=== PATIENT | female | born 1995 | race Caucasian/White ===

== ENCOUNTER 2017-11-22 20:09 | Emergency (ER) | payer OTHER ==
[~2017-11-22] VITALS: Ht 165.1 cm; Wt 64.0 kg
[2017-11-22] MEDS ORDERED: IV RINGERS SOLUTION,LACTATED 1,000 ML IV SCH (20:40)
--- NOTE | 2017-11-22 20:40 | ED.ADGEN ---
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 here in my lower abd.. kali to right.. it better now.. but I got scared since I am about 10 weeks ....." HPI HPI Patient is a 22 year old female who presents with above hx and complaints of lower Rt. quadrant abdomen pain. Pt. . Estimated 10 wks gravid. Pt. denies any bleeding or vaginal discharge. Pt. has been nauseated. No hx of ill contacts or travel. No hx of immunosuppression. Lifetime sexual partner x1 , No hx of STD. Pt[facility] following [facility]. No hx of bad food intact. Normal stools. Review of Systems Review of Systems Constitutional: Denies fever or chills [] Eyes: Denies change in visual acuity, redness, or eye pain [] HENT: Denies nasal congestion or sore throat [] Respiratory: Denies cough or shortness of breath [] Cardiovascular: No additional information not addressed in HPI [] GI: Complaints of abdominal pain, nausea,. Denies vomiting, bloody stools or diarrhea [] : Denies dysuria or hematuria [] Musculoskeletal: Denies back pain or joint pain [] Integument: Denies rash or skin lesions [] Neurologic: Denies headache, focal weakness or sensory changes [] Endocrine: Denies polyuria or polydipsia [] All other systems were reviewed and found to be within normal limits, except as documented in this note. Family History Family History Non-contributory Current Medications Current Medications Current Medications Medications (Trade) Dose Ordered Sig/Zayda Start Time Stop Time Status Last Admin Dose Admin Cephalexin HCl (Keflex) 500 mg 1X ONCE 11/22/17 22:15 11/22/17 22:16 DC 11/22/17 22:04 500 MG Lactated Ringer's 1,000 ml @ 1,000 mls/hr Q1H 11/22/17 20:40 11/22/17 21:39 DC 11/22/17 22:05 1,000 MLS/HR Potassium Chloride (KCl Oral Soln) 40 meq 1X ONCE 11/22/17 22:00 11/22/17 22:01 DC 11/22/17 22:05 40 MEQ Allergies Allergies Allergies Coded Allergies Type Severity Reaction Last Updated Verified No Known Drug Allergies 11/22/17 No Physical Exam Physical Exam Constitutional: Well developed, well nourished, no acute distress, non-toxic appearance. [] HENT: Normocephalic, atraumatic, bilateral external ears normal, oropharynx moist, no oral exudates, nose normal. [] Eyes: PERRLA, EOMI, conjunctiva normal, no discharge. [] Neck: Normal range of motion, no tenderness, supple, no stridor. [] Cardiovascular:Heart rate regular rhythm, no murmur [] Lungs & Thorax: Bilateral breath sounds clear to auscultation [] Abdomen: Bowel sounds normal, soft, mild generalize lower abd. tenderness, no masses, no pulsatile masses. [] Gravid. Skin: Warm, dry, no erythema, no rash. [] Back: No tenderness, no CVA tenderness. [] Extremities: No tenderness, no cyanosis, no clubbing, ROM intact, no edema. [] No psoas. Neurologic: Alert and oriented X 3, normal motor function, normal sensory function, no focal deficits noted. []DTR+ 2 patella. Psychologic: Affect anxious, judgement normal, mood normal. [] Current Patient Data Vital Signs Vital Signs Date Time Temp Pulse Resp B/P (MAP) Pulse Ox O2 Delivery O2 Flow Rate FiO2 11/22/17 22:55 75 18 116/69 (85) 100 Room Air 11/22/17 20:09 98.2 Lab Results Laboratory Tests Test 11/22/17 20:26 11/22/17 20:34 11/22/17 21:15 POC Urine HCG, Qualitative hcg positive (Negative) White Blood Count 6.8 x10^3/uL (4.0-11.0) Red Blood Count 4.21 x10^6/uL (3.50-5.40) Hemoglobin 11.1 g/dL (12.0-15.5) L Hematocrit 33.3 % (36.0-47.0) L Mean Corpuscular Volume 79 fL (79-100) Mean Corpuscular Hemoglobin 26 pg (25-35) Mean Corpuscular Hemoglobin Concent 33 g/dL (31-37) Red Cell Distribution Width 17.6 % (11.5-14.5) H Platelet Count 257 x10^3/uL (140-400) Neutrophils (%) (Auto) 63 % (31-73) Lymphocytes (%) (Auto) 30 % (24-48) Monocytes (%) (Auto) 7 % (0-9) Eosinophils (%) (Auto) 1 % (0-3) Basophils (%) (Auto) 0 % (0-3) Neutrophils # (Auto) 4.2 x10^3uL (1.8-7.7) Lymphocytes # (Auto) 2.0 x10^3/uL (1.0-4.8) Monocytes # (Auto) 0.5 x10^3/uL (0.0-1.1) Eosinophils # (Auto) 0.1 x10^3/uL (0.0-0.7) Basophils # (Auto) 0.0 x10^3/uL (0.0-0.2) Prothrombin Time 9.5 SEC (9.4-11.4) Prothrombin Time INR 0.9 (0.9-1.1) PTT 24 SEC (23-33) Maternal Serum HCG Beta Subunit 011564 mIU/mL (0-6) H Sodium Level 139 mmol/L (136-145) Potassium Level 2.9 mmol/L (3.5-5.1) *L Chloride Level 102 mmol/L (98-107) Carbon Dioxide Level 26 mmol/L (21-32) Anion Gap 11 (6-14) Blood Urea Nitrogen 12 mg/dL (7-20) Creatinine 0.6 mg/dL (0.6-1.0) Estimated GFR (Cockcroft-Gault) 123.9 Glucose Level 94 mg/dL (70-99) Calcium Level 9.7 mg/dL (8.5-10.1) Total Bilirubin 0.2 mg/dL (0.2-1.0) Direct Bilirubin < 0.1 mg/dL (0.0-0.2) Aspartate Amino Transferase (AST) 16 U/L (15-37) Alanine Aminotransferase (ALT) 19 U/L (14-59) Alkaline Phosphatase 63 U/L (46-116) Total Protein 7.7 g/dL (6.4-8.2) Albumin 3.9 g/dL (3.4-5.0) Urine Collection Type Unknown Urine Color Yellow Urine Clarity Clear Urine pH 5.0 Urine Specific [place] >=1.030 Urine Protein 30 mg/dl (NEG-TRACE) Urine Glucose (UA) Neg mg/dL (NEG) Urine Ketones (Stick) Neg mg/dL (NEG) Urine Blood Neg (NEG) Urine Nitrite Neg (NEG) Urine Bilirubin Neg (NEG) Urine Urobilinogen Dipstick 0.2 mg/dL (0.2 mg/dL) Urine Leukocyte Esterase Small (NEG) Urine RBC 0 /HPF (0-2) Urine WBC 1-4 /HPF (0-4) Urine Squamous Epithelial Cells Mod /LPF Urine Bacteria Mod /HPF (0-FEW) Urine Mucus Slight /LPF Urine Opiates Screen Neg (NEG) Urine Methadone Screen Neg (NEG) Urine Barbiturates Neg (NEG) Urine Phencyclidine Screen Neg (NEG) Urine Amphetamine/Methamphetamine Neg (NEG) Urine Benzodiazepines Screen Neg (NEG) Urine Cocaine Screen Neg (NEG) Urine Cannabinoids Screen Neg (NEG) Urine Ethyl Alcohol Neg (NEG) EKG EKG [] Radiology/Procedures Radiology/Procedures US= Small bleed- 3 x3.7 cm x 0.5 . Live IUP est. 11wks, EDC =06-13-18, FHR 178 , [] Course & Med Decision Making Course & Med Decision Making Pertinent Labs and Imaging studies reviewed. (See chart for details) Followup all labs and cultures with primary and OB. Push fruit juices. Take Keflex 500 three times a day x 7 days. Return if any concerns. [] Final Impression Final Impression 1. Abd. Pain in [] 2. Hypokalemia 3. Anemia 4. B-HCG= 145,425 5. UTI 6. Hypokalemia 7. IUP 11w.0 day- EDC 06-13-18 Kristi Disclaimer Dragon Disclaimer This electronic medical record was generated, in whole or in part, using a voice recognition dictation system. JUDI DUNBAR MD November 22, 2017 20:40
[2017-11-22 20:54] LABS: BASO % 0 % (0-3); EOS # 0.1 x10^3/uL (0.0-0.7); EOS % 1 % (0-3); HEMATOCRIT 33.3 % (36.0-47.0); HEMOGLOBIN 11.1 g/dL (12.0-15.5); LYMPH % 30 % (24-48); MEAN CORPUSCULAR HEMOGLOBIN 26 pg (25-35); MEAN CORPUSCULAR HGB CONC 33 g/dL (31-37); MEAN CORPUSCULAR VOLUME 79 fL (79-100); MONO # 0.5 x10^3/uL (0.0-1.1); MONO % 7 % (0-9); NEUT # 4.2 x10^3uL (1.8-7.7); NEUT % 63 % (31-73); PLATELET COUNT 257 x10^3/uL (140-400); RED BLOOD COUNT 4.21 x10^6/uL (3.50-5.40); RED CELL DISTRIBUTION WIDTH 17.6 % (11.5-14.5); WHITE BLOOD COUNT 6.8 x10^3/uL (4.0-11.0)
[2017-11-22 21:04] LABS: ALBUMIN 3.9 g/dL (3.4-5.0); ALK PHOS 63 U/L (46-116); ALT (SGPT) 19 U/L (14-59); ANION GAP 11 (6-14); AST (SGOT) 16 U/L (15-37); BLOOD UREA NITROGEN 12 mg/dL (7-20); CALCIUM 9.7 mg/dL (8.5-10.1); CARBON DIOXIDE 26 mmol/L (21-32); CHLORIDE 102 mmol/L (98-107); CREATININE 0.6 mg/dL (0.6-1.0); GFR 123.9; GLUCOSE 94 mg/dL (70-99); SODIUM 139 mmol/L (136-145); TOTAL BILIRUBIN 0.2 mg/dL (0.2-1.0); TOTAL PROTEIN 7.7 g/dL (6.4-8.2)
[2017-11-22 21:15] LABS: DIRECT BILIRUBIN < 0.1 mg/dL (0.0-0.2)
[2017-11-22 21:16] LABS: POTASSIUM 2.9 mmol/L (3.5-5.1)
[2017-11-22 21:54] LABS: BILIRUBIN,URINE NEG (NEG); CLARITY,URINE CLEAR; COLOR,URINE YELLOW; GLUCOSE,URINE NEG (NEG); NITRITE,URINE NEG (NEG); UROBILINOGEN,URINE 0.2 mg/dL (0.2 mg/dL)
[2017-11-22 21:55] LABS: BACTERIA,URINE MOD /HPF (0-FEW); RBC,URINE 0 /HPF (0-2); SQUAMOUS EPITHELIAL CELL,UR MOD /LPF
[2017-11-22 21:58] LABS: BARBITURATES NEG (NEG); BENZODIAZEPINES NEG (NEG); CANNABINOIDS NEG (NEG); COCAINE NEG (NEG); METHADONE NEG (NEG); OPIATES NEG (NEG); PHENCYCLIDINE NEG (NEG)
[2017-11-22] MEDS ORDERED: POTASSIUM CHLORIDE 20 MEQ/15 ML ORAL LIQUID. PO ONE (22:00)
[2017-11-22 22:10] LABS: AMPHETAMINE/METHAMPHETAMINE NEG (NEG)
[2017-11-22] MEDS ORDERED: CEPHALEXIN 250 MG CAPSULE PO ONE (22:15)
[2017-11-22] MEDS ORDERED: CEPH-264 PO (22:17)
--- NOTE | 2017-11-22 22:22 | RAD ---
EXAM: Obstetrics sonogram. HISTORY: Right-sided pain. TECHNIQUE: Sonographic imaging of a gravid uterus was performed. COMPARISON: None. FINDINGS: The uterus measures 11.6 x 8.2 x 9.3 cm. There is a single intrauterine gestational sac with pole and yolk sac. The gestational sac is normal in configuration. The yolk sac is slightly enlarged, measuring 6 mm. There is a subchorionic hematoma along the inferior aspect of the gestational sac measuring 3.7 x 3.0 x 0.5 cm. The crown-rump length is 4.11 cm, corresponding with a gestational age of 11 weeks and 0 days. The heart rate is 178 bpm. The cervix is closed and measures 4.0 cm. The maternal ovaries are unremarkable. There is no pelvic free fluid. IMPRESSION: 1. Single intrauterine fetus with an estimated gestational age of 11 weeks and 0 days and heart rate of 178 bpm. 2. Slightly enlarged yolk sac, measuring 6 mm. This is near normal and may be of no clinical significance. 3. Suspected subchorionic hematoma measuring 3.7 cm. Electronically signed by: Jennifer Silvestre MD (11/22/2017 10:19 PM) [facility]
[2017-11-22 22:55] VITALS: BP 116/69
== END 2017-11-22 22:55 | disposition home or self-care (01) ==
LOC: ER 20:09
DX: O23.41 Unspecified infection of urinary tract in pregnancy, first trimester (principal); O99.011 Anemia complicating pregnancy, first trimester; O99.281 Endocrine, nutritional and metabolic diseases complicating pregnancy, first trimester; E87.6 Hypokalemia; Z3A.11 11 weeks gestation of pregnancy
CPT/HCPCS: 36415; 76801; 80048; 80076; 80307; 81001; 81025; 84702; 85025; 85610; 85730; 86900; 86901; 87086; 96360; 99285; J7120; G0479